=== PATIENT | female | born 1970 | race Caucasian/White ===

== ENCOUNTER 2017-02-17 10:19 | Emergency (ER) | payer BC, OTHER ==
[~2017-02-17] VITALS: Ht 165.1 cm; Wt 72.1 kg
--- NOTE | 2017-02-17 10:26 | NUR ---
Presents self to ed due to abdominal cramps x this morning with nausea and vomitting,.Patient reported 2x lbm and 1x vomiting,.Skin is warm to touch and non diaphoretic. Afebrile. Vss. will cont to monitor
[2017-02-17] MEDS ORDERED: IV NS 0.9% 1,000 ML ONE (10:47)
[2017-02-17] MEDS ORDERED: IV SET PRIMARY PUMP SET 1 EA INFUS.SET MC ONE (10:47)
[2017-02-17 10:56] LABS: APPEARANCE,URINE Clear (CLEAR); BILIRUBIN,URINE Negative (NEGATIVE); BLOOD, URINE Trace-intact Ery/uL (NEGATIVE); COLOR,URINE Yellow (YELLOW); KETONES,URINE 40 (NEGATIVE); LEUKOCYTE ESTERASE ,URINE Negative (NEGATIVE); NITRITE, URINE Negative (NEGATIVE); PH,URINE 6.5 (5.0-8.0); PROTEIN,URINE Trace mg/dl (NEGATIVE); UGLUCOSE Negative (NEGATIVE); UROBILINOGEN,URINE 0.2 EU/dL (0.2)
[2017-02-17 10:58] LABS: PREGNANCY TEST URINE QUAL NEGATIVE (NEGATIVE)
[2017-02-17] MEDS ORDERED: IV NS 0.9% 1,000 ML BAG IV ONE (11:00)
[2017-02-17 11:03] LABS: ADD URINE CULTURE NO; BACTERIA,URINE Few /HPF (None Seen); SQUAMOUS EPITHELIAL CELL,UR Moderate /HPF (None Seen)
[2017-02-17 11:05] LABS: BASOPHILS # (AUTO) 0.3 /CMM (0.0-0.2); BASOPHILS % (AUTO) 3.1 % (0.0-2.0); EOSINOPHILS % (AUTO) 0.2 % (0.0-6.0); HEMATOCRIT 42 % (33-45); HEMOGLOBIN 13.9 g/dL (11.5-14.8); LYMPHOCYTES # (AUTO) 0.5 /CMM (0.8-4.8); LYMPHOCYTES % (AUTO) 5.8 % (20.0-44.0); MEAN CORPUSCULAR HEMOGLOBIN 31 PG (26.0-33.0); MEAN CORPUSCULAR HGB CONC 33 g/dl (31.0-36.0); MEAN CORPUSCULAR VOLUME 93 fL (82-100); MONOCYTES # (AUTO) 0.4 /CMM (0.1-1.30); MONOCYTES % (AUTO) 4.5 % (2.0-12.0); NEUTROPHILS # (AUTO) 7.8 /CMM (1.8-8.9); NEUTROPHILS % (AUTO) 86.4 % (43.0-81.0); PLATELET COUNT (AUTO) 190 /CMM (150-450); RDW COEFFICIENT OF VARIATION 12.4 (11.5-15.0); RED BLOOD CELL COUNT(AUTO) 4.49 MIL/uL (4.0-5.2)
--- NOTE | 2017-02-17 11:10 | NUR ---
URINE SAMPLE SENT TO LAB
--- NOTE | 2017-02-17 11:12 | NUR ---
RT WRIST #20 IV ACCESS
[2017-02-17] MEDS ORDERED: MORPHINE SULFATE INJ 4 MG/ML DISP.SYRIN ONE ×2 (11:14→14:13)
[2017-02-17] MEDS ORDERED: ONDANSETRON HCL/PF 4 MG/2 ML VIAL ONE ×2 (11:14→14:13)
[2017-02-17 11:17] LABS: CALCIUM, SERUM 8.7 mg/dL (8.5-10.1); CREATININE 0.7 mg/dL (0.6-1.3); POTASSIUM 3.7 mmol/L (3.5-5.1)
[2017-02-17 11:23] LABS: ALBUMIN 4.1 g/dL (3.4-5.0); BILIRUBIN,DIRECT 0.2 mg/dL (0.0-0.2); BILIRUBIN,TOTAL 0.6 mg/dL (0.2-1.0); TOTAL PROTEIN, SERUM 7.2 g/dL (6.4-8.2)
--- NOTE | 2017-02-17 11:29 | NUR ---
PT WAS TAKEN TO CT
[2017-02-17] MEDS ORDERED: ONDANSETRON HCL/PF 4 MG/2 ML VIAL IVP ONE ×2 (11:30→14:30)
[2017-02-17] MEDS ORDERED: MORPHINE SULFATE INJ 2 MG/ML DISP.SYRIN IV ONE ×2 (11:30→14:30)
[2017-02-17] MEDS ORDERED: CT SWABBABLE VALVE TRANS SET 1 EA INFUS.SET MC ONE (12:31)
[2017-02-17] MEDS ORDERED: IOHEXOL-300 100 ML VIAL IV ONE (12:31)
[2017-02-17] MEDS ORDERED: IV NS 0.9% 250 ML IV ONE (12:31)
--- NOTE | 2017-02-17 12:39 | NUR ---
PT TAKEN TO CT AGAIN FOR CT W CONTRAST.
--- NOTE | 2017-02-17 12:58 | NUR ---
PT IS BACK FROM CT
--- NOTE | 2017-02-17 12:58 | NUR ---
awaiting for [facility] tech
--- NOTE | 2017-02-17 14:29 | NUR ---
IV removed. Catheter intact and site benign. Pressure and 4x4 applied to site. No bleeding noted. Patient discharged to home in stable condition. Written and verbal after care instructions given. Patient verbalizes understanding of instruction. Prescription given to patient.
[2017-02-17 14:30] VITALS: BP 110/65
== END 2017-02-17 14:31 | disposition home or self-care (01) ==
LOC: ER 10:21
DX: R10.30 Lower abdominal pain, unspecified (principal); R11.2 Nausea with vomiting, unspecified
CPT/HCPCS: 36415; 74160; 74176; 76856; 80048; 80076; 81001; 83690; 84703; 85025; 96361; 96374; 96375; 96376; 99285; A4606; J2270 ×2; J2405 ×2; J7030; J7050; Q9967; Z7610; 81000-TC

== ENCOUNTER 2017-02-18 20:30 | Emergency (ER) | payer BC ==
[~2017-02-18] VITALS: Ht 160 cm; Wt 61.2 kg
--- NOTE | 2017-02-18 20:36 | NUR ---
To bed 3 a 46 yo female bibself with c/o fever. Oral temp at 100 upon arrival to ER. Patient also reports of intermittent abdl pain 7/10 on the right lower quadrant and pelvic area, tender to touch. Patient was here yesterday and was diagnosed with ruptured ovarian cyst on the right, however when she visited her body engineer today, her "OB did not believe she has an ovarian cyst." Comfort measures rendered to patient. Gowned. Awaiting for er md marroquin.
--- NOTE | 2017-02-18 20:40 | NUR ---
Dr Apple at bedside for eval.
[2017-02-18] MEDS ORDERED: ACETAMINOPHEN ES 500 MG TABLET ONE (20:58)
[2017-02-18] MEDS ORDERED: ACETAMINOPHEN 325 MG TABLET PO ONE (21:00)
--- NOTE | 2017-02-18 21:07 | NUR ---
laboratory assistant at bedside to draw blood
[2017-02-18 21:16] LABS: BASOPHILS % (AUTO) 0.3 % (0.0-2.0); EOSINOPHILS % (AUTO) 0.1 % (0.0-6.0); HEMATOCRIT 36 % (33-45); HEMOGLOBIN 11.9 g/dL (11.5-14.8); LYMPHOCYTES # (AUTO) 0.5 /CMM (0.8-4.8); LYMPHOCYTES % (AUTO) 4.7 % (20.0-44.0); MEAN CORPUSCULAR HEMOGLOBIN 31 PG (26.0-33.0); MEAN CORPUSCULAR HGB CONC 34 g/dl (31.0-36.0); MEAN CORPUSCULAR VOLUME 92 fL (82-100); MONOCYTES # (AUTO) 0.4 /CMM (0.1-1.30); MONOCYTES % (AUTO) 3.7 % (2.0-12.0); NEUTROPHILS # (AUTO) 9.2 /CMM (1.8-8.9); NEUTROPHILS % (AUTO) 91.2 % (43.0-81.0); PLATELET COUNT (AUTO) 201 /CMM (150-450); RDW COEFFICIENT OF VARIATION 13.5 (11.5-15.0); RED BLOOD CELL COUNT(AUTO) 3.88 MIL/uL (4.0-5.2); WHITE BLOOD COUNT (AUTO) 10.1 K/uL (4.3-11.0)
[2017-02-18 21:29] LABS: CALCIUM, SERUM 8.3 mg/dL (8.5-10.1); CREATININE 0.8 mg/dL (0.6-1.3); POTASSIUM 3.3 mmol/L (3.5-5.1)
--- NOTE | 2017-02-18 21:45 | NUR ---
Dr Apple at bedside for discharge instructions.
--- NOTE | 2017-02-18 22:00 | NUR ---
Patient left home, refused to sign discharge instruction paperwork. prescription was given.
[2017-02-18 22:49] VITALS: BP 112/68
== END 2017-02-18 22:00 | disposition home or self-care (01) ==
LOC: ER 20:31
DX: R10.31 Right lower quadrant pain (principal)
CPT/HCPCS: 36415; 80048; 85025; 99284; A4606; Z7610

== ENCOUNTER 2017-07-05 03:56 | Emergency (ER) | payer BC ==
[~2017-07-05] VITALS: Ht 160 cm; Wt 61.2 kg
[2017-07-05] MEDS ORDERED: ONDANSETRON HCL/PF 4 MG/2 ML VIAL IVP ONE (04:30)
[2017-07-05] MEDS ORDERED: KETOROLAC TROMETHAMINE INJ 30 MG/ML VIAL IV ONE (04:30)
--- NOTE | 2017-07-05 04:35 | NUR ---
CALLED [facility] FOR PELVIC STUDY. ETA: 1 HOUR
[2017-07-05] MEDS ORDERED: ONDANSETRON HCL/PF 4 MG/2 ML VIAL ONE ×2 (04:39→06:44)
[2017-07-05] MEDS ORDERED: KETOROLAC TROMETHAMINE INJ 30 MG/ML VIAL ONE (04:39)
--- NOTE | 2017-07-05 04:40 | NUR ---
18G LEFT AC IV STARTED. BLOOD SAMPLE OBTAINED AND SENT TO LAB
--- NOTE | 2017-07-05 04:43 | NUR ---
MEDICTAED PT ORDERED
[2017-07-05 04:55] LABS: APPEARANCE,URINE SL CLOUDY (CLEAR); BILIRUBIN,URINE NEGATIVE (NEGATIVE); BLOOD, URINE TRACE Ery/uL (NEGATIVE); COLOR,URINE YELLOW (YELLOW); KETONES,URINE TRACE (NEGATIVE); LEUKOCYTE ESTERASE ,URINE NEGATIVE (NEGATIVE); NITRITE, URINE NEGATIVE (NEGATIVE); PH,URINE 5.5 (5.0-8.0); PROTEIN,URINE NEGATIVE (NEGATIVE); UGLUCOSE NEGATIVE (NEGATIVE); UROBILINOGEN,URINE 0.2 EU/dL (0.2)
[2017-07-05 04:56] LABS: BASOPHILS % (AUTO) 0.2 % (0.0-2.0); EOSINOPHILS # (AUTO) 0.1 /CMM (0.0-0.7); EOSINOPHILS % (AUTO) 1.2 % (0.0-6.0); HEMATOCRIT 36 % (33-45); HEMOGLOBIN 12.6 g/dL (11.5-14.8); LYMPHOCYTES # (AUTO) 2.1 /CMM (0.8-4.8); LYMPHOCYTES % (AUTO) 20.9 % (20.0-44.0); MEAN CORPUSCULAR HEMOGLOBIN 32 PG (26.0-33.0); MEAN CORPUSCULAR HGB CONC 35 g/dl (31.0-36.0); MEAN CORPUSCULAR VOLUME 93 fL (82-100); MONOCYTES % (AUTO) 0.4 % (2.0-12.0); NEUTROPHILS # (AUTO) 7.7 /CMM (1.8-8.9); NEUTROPHILS % (AUTO) 77.3 % (43.0-81.0); PLATELET COUNT (AUTO) 214 /CMM (150-450); RDW COEFFICIENT OF VARIATION 12.8 (11.5-15.0); RED BLOOD CELL COUNT(AUTO) 3.89 MIL/uL (4.0-5.2)
[2017-07-05 04:58] LABS: CALCIUM, SERUM 8.2 mg/dL (8.5-10.1); CREATININE 0.7 mg/dL (0.6-1.3); POTASSIUM 3.1 mmol/L (3.5-5.1)
[2017-07-05 04:59] LABS: PREGNANCY TEST URINE QUAL NEGATIVE (NEGATIVE)
[2017-07-05 05:06] LABS: ALBUMIN 3.8 g/dL (3.4-5.0); BILIRUBIN,TOTAL 0.2 mg/dL (0.2-1.0); TOTAL PROTEIN, SERUM 6.7 g/dL (6.4-8.2)
[2017-07-05 05:27] LABS: BACTERIA,URINE None seen /HPF (None Seen); RBC,URINE 0-2 /HPF (0-2); SQUAMOUS EPITHELIAL CELL,UR Rare /HPF (None Seen); WBC,URINE 0-2 /HPF (0-3)
[2017-07-05] MEDS ORDERED: POTASSIUM CHLORIDE 20 MEQ TAB.PRT.SR PO ONE ×2 (05:30→06:44)
[2017-07-05 05:32] LABS: INR 0.95 (0.87-1.13); PROTHROMBIN TIME 10.1 SECS (9.5-12.7)
[2017-07-05] MEDS ORDERED: MORPHINE SULFATE INJ 2 MG/ML DISP.SYRIN IV ONE (06:30)
[2017-07-05] MEDS ORDERED: ONDANSETRON HCL/PF 4 MG/2 ML VIAL IV ONE (06:30)
[2017-07-05] MEDS ORDERED: MORPHINE SULFATE INJ 4 MG/ML DISP.SYRIN ONE (06:44)
--- NOTE | 2017-07-05 07:35 | NUR ---
REPORT GIVEN TO LUIS FERNANDO FOR [facility]
--- NOTE | 2017-07-05 08:05 | NUR ---
PT SENT TO CT
[2017-07-05 08:14] VITALS: BP 108/66
== END 2017-07-05 08:40 | disposition home or self-care (01) ==
LOC: ER 03:57
DX: N83.209 Unspecified ovarian cyst, unspecified side (principal); E87.6 Hypokalemia
CPT/HCPCS: 36415; 72193; 74176; 76856; 80048; 80076; 81001; 84703; 85025; 85730; 96374; 96375; 96376; 99285; A4606; J1885; J2270; J2405 ×2; Z7610; 72128-TC; 81000-TC

== ENCOUNTER 2018-07-09 22:36 | Emergency (ER) | payer SELFPAY ==
[~2018-07-09] VITALS: Ht 160 cm; Wt 60.8 kg
--- NOTE | 2018-07-09 22:50 | NUR ---
pt ambulatory w/ steady gait, c/o lower pelvic pain x 2 days, tried taking motrin for pain w/ no relief, hx ovarian cysts. AOx4, afebrile w/ resp even & unlabored, denies any VB, no hematuria/dysuria, no N/V w/ mild discomfort noted. Dr. Paez at bedside for further eval. Urine obtained & sent to lab.
[2018-07-09] MEDS ORDERED: ONDANSETRON HCL/PF 4 MG/2 ML VIAL ONE (22:56)
[2018-07-09] MEDS ORDERED: MORPHINE SULFATE INJ 4 MG/ML DISP.SYRIN ONE ×2 (22:56→23:44)
[2018-07-09] MEDS ORDERED: MORPHINE SULFATE INJ 2 MG/ML DISP.SYRIN IV ONE (23:00)
[2018-07-09] MEDS ORDERED: ONDANSETRON HCL/PF 4 MG/2 ML VIAL IVP ONE (23:00)
--- NOTE | 2018-07-09 23:00 | NUR ---
IVHL started, labs drawn & sent. pt medicated as ordered for lower pelvic pain.
[2018-07-09 23:17] LABS: BASOPHILS % (AUTO) 0.2 % (0.0-2.0); EOSINOPHILS % (AUTO) 1.5 % (0.0-6.0); HEMATOCRIT 40 % (33-45); HEMOGLOBIN 13.6 g/dL (11.5-14.8); LYMPHOCYTES # (AUTO) 2.7 /CMM (0.8-4.8); MEAN CORPUSCULAR HEMOGLOBIN 33 PG (26.0-33.0); MEAN CORPUSCULAR HGB CONC 34 g/dl (31.0-36.0); MEAN CORPUSCULAR VOLUME 97 fL (82-100); MONOCYTES # (AUTO) 0.7 /CMM (0.1-1.30); MONOCYTES % (AUTO) 5.9 % (2.0-12.0); NEUTROPHILS # (AUTO) 7.6 /CMM (1.8-8.9); NEUTROPHILS % (AUTO) 68.4 % (43.0-81.0); PLATELET COUNT (AUTO) 254 /CMM (150-450); RDW COEFFICIENT OF VARIATION 12.6 (11.5-15.0); RED BLOOD CELL COUNT(AUTO) 4.17 MIL/uL (4.0-5.2); WHITE BLOOD COUNT (AUTO) 11.1 K/uL (4.3-11.0)
[2018-07-09 23:26] LABS: APPEARANCE,URINE CLEAR (CLEAR); BILIRUBIN,URINE NEGATIVE (NEGATIVE); BLOOD, URINE NEGATIVE Ery/uL (NEGATIVE); COLOR,URINE YELLOW (YELLOW); KETONES,URINE TRACE (NEGATIVE); LEUKOCYTE ESTERASE ,URINE NEGATIVE (NEGATIVE); NITRITE, URINE NEGATIVE (NEGATIVE); PROTEIN,URINE NEGATIVE (NEGATIVE); UGLUCOSE NEGATIVE (NEGATIVE); UROBILINOGEN,URINE 0.2 EU/dL (0.2)
--- NOTE | 2018-07-09 23:29 | NUR ---
US tech at bedside.
[2018-07-09 23:33] LABS: BACTERIA,URINE 2+ /HPF (None Seen); RBC,URINE 0-2 /HPF (0-2); SQUAMOUS EPITHELIAL CELL,UR Few /HPF (None Seen); WBC,URINE 0-2 /HPF (0-3)
[2018-07-09 23:34] LABS: MUCUS,URINE Few /LPF (None Seen)
--- NOTE | 2018-07-09 23:40 | NUR ---
US complete. pt report continues to have rt lower pelvic pain, requesting for pain medication. pt at bedside.
[2018-07-10] MEDS ORDERED: MORPHINE SULFATE INJ 2 MG/ML DISP.SYRIN IV ONE
[2018-07-10 00:38] LABS: CALCIUM, SERUM 8.9 mg/dL (8.5-10.1); CREATININE 0.7 mg/dL (0.6-1.3); POTASSIUM 3.3 mmol/L (3.5-5.1)
--- NOTE | 2018-07-10 00:39 | NUR ---
pt resting comfortably in bed, report rt lower pelvic pain better w/ medication. pt at bedside.
[2018-07-10 00:51] LABS: ALBUMIN 3.8 g/dL (3.4-5.0); BILIRUBIN,DIRECT 0.1 mg/dL (0.0-0.2); BILIRUBIN,TOTAL 0.5 mg/dL (0.2-1.0)
--- NOTE | 2018-07-10 01:07 | NUR ---
Dr. Paez at bedside for discharge instructions. IV removed. Catheter intact and site benign. Pressure and 4x4 applied to site. No bleeding noted.Patient discharged to home in stable condition. Written and verbal after care instructions given. Patient verbalizes understanding of instruction.
[2018-07-10 01:08] VITALS: BP 97/56
== END 2018-07-10 01:08 | disposition home or self-care (01) ==
LOC: ER 22:38
DX: N83.209 Unspecified ovarian cyst, unspecified side (principal)
CPT/HCPCS: 36415; 76856; 80048; 80076; 81001; 84702; 84703; 85025; 87086; 96374; 96375; 96376; 99285; A4606; J2270 ×2; J2405; Z7610; 81000-TC

== ENCOUNTER 2020-03-17 22:33 | Emergency (ER) | payer BC ==
[~2020-03-17] VITALS: Ht 157.5 cm; Wt 59.0 kg
[2020-03-17 22:57] VITALS: BP 117/86
== END 2020-03-17 23:51 | disposition home or self-care (01) ==
LOC: ER 22:41
DX: S61.214A Laceration without foreign body of right ring finger without damage to nail, initial encounter (principal); W26.8XXA Contact with other sharp object(s), not elsewhere classified, initial encounter; Y93.89 Activity, other specified; Y92.89 Other specified places as the place of occurrence of the external cause; Y99.8 Other external cause status